=== PATIENT | male | born 1980 | race Hispanic/Latino ===

== ENCOUNTER 2016-10-16 10:53 | Emergency (ER) | payer OTHER ==
[~2016-10-16] VITALS: Ht 167.6 cm; Wt 117.5 kg
[2016-10-16] MEDS ORDERED: IBUP-1114 PO (11:06)
[2016-10-16] MEDS ORDERED: KETOROLAC 30 MG/ML VIAL (J1885) IV ONE (11:15)
--- NOTE | 2016-10-16 11:26 | REP ---
Portable chest: Single view. History: Chest pain. Comparison study: No comparison study. Findings: The lungs are well inflated and clear. Pleural angles are sharp. Cardiomediastinal silhouette is unremarkable. Pulmonary vasculature is not increased. No bony abnormality is seen. Impression: No active disease. Signed by Ryan Sheppard MD 10/16/2016 11:17 A
[2016-10-16 11:28] LABS: BASO % 0.3 % (0.0-1.0); EOS # 0.1 K/mm3 (0.0-0.50); EOS % 1.4 % (0.0-3.0); LARGE UNSTAINED CELL # 0.1 K/mm3 (0.0-0.4); LARGE UNSTAINED CELL % 1.4 % (0.0-4.0); LYMPH # 2.4 K/mm3 (1.5-4.5); MEAN CORPUSCULAR HEMOGLOBIN 30.9 pg (27.0-33.0); MEAN CORPUSCULAR HGB CONC 33.5 g/dl (32.0-36.5); MEAN CORPUSCULAR VOLUME 92.2 fl (80.0-96.0); MONO # 0.5 K/mm3 (0.0-0.8); MONO % 5.7 % (0.0-5.0); NEUTROPHILS # 6.3 K/mm3 (1.8-7.7); NEUTROPHILS % 66.2 % (36.0-66.0); PLATELET COUNT, AUTOMATED 256 k/mm3 (150-450); RED CELL DISTRIBUTION WIDTH 12.3 % (11.5-14.5); WHITE BLOOD COUNT 9.5 K/mm3 (4.0-10.0)
[2016-10-16 11:43] LABS: ANION GAP 7 MEQ/L (8-16); BLOOD UREA NITROGEN 14 MG/DL (7-18); CALCIUM LEVEL 8.6 MG/DL (8.5-10.1); CARBON DIOXIDE LEVEL 27 MEQ/L (21-32); CHLORIDE LEVEL 106 MEQ/L (98-107); CREATININE FOR GFR 0.85 MG/DL (0.70-1.30); GLOMERULAR FILTRATION RATE > 60.0 (>60); GLUCOSE, FASTING 86 MG/DL (70-105); POTASSIUM SERUM 4.1 MEQ/L (3.5-5.1); SODIUM LEVEL 140 MEQ/L (136-145)
[2016-10-16] MEDS ORDERED: NAPR500T PO (13:27)
[2016-10-16] MEDS ORDERED: ISOVUE-370 76% 100ML VIAL (Q9967) As Ordered ONE (14:03)
--- NOTE | 2016-10-16 14:30 | REP ---
CT pulmonary angiogram: With IV contrast. History: Chest pain. Pleuritic. Question pulmonary embolism. Comparison studies: Comparison is made with today's chest x-ray. Contrast dose: 75 cc's of Isovue [address] technique: Helical scanning is acquired and overlapping 1.5 mm and contiguous 3 mm axial images are reformatted. In addition, a 3-D work station is deployed to generate thick slab maximum intensity projection images in sagittal and coronal imaging projections. CT pulmonary angiographic findings: There is good opacification of the pulmonary arterial tree and there is no CT evidence of pulmonary embolism. Maximum intensity projection images show no evidence of vessel cutoff or filling defect to suggest a thrombus. The thoracic aorta enhances homogeneously and is normal in caliber and course. There is no evidence of dissection. No adrenal lesion is seen. The visualized upper abdominal structures are unremarkable. No pleural or pericardial effusion is seen. No hilar or mediastinal mass or adenopathy is observed. No bony destructive lesion is appreciated on bone window settings. There is evidence of an old healed fracture involving the left lateral 9th rib end. This does not appear to be acute. No other evidence of rib fracture is seen. Impression: No active disease. No CT evidence of pulmonary embolism. Signed by Ryan Sheppard MD 10/16/2016 02:21 P
[2016-10-16 14:46] VITALS: BP 137/66
--- NOTE | 2016-10-17 20:01 | ECGEPIP ---
Stationary ECG Study [facility] - ED Test Date: 2016-10-16 Pat Name: NADINE SINGLETARY Department: Room: - Gender: M [employer] Sweeper: ELIAN : 1980 Requested By: Keely Bey Order Number: [id number] Reading MD: Magan Aguirre Measurements Intervals [place] Rate: 57 P: 18 WI: 153 QRS: 55 QRSD: 114 T: -8 QT: 383 QTc: 375 Interpretive Statements SINUS BRADYCARDIA MODERATE INTRAVENTRICULAR CONDUCTION DELAY ABNORMAL QRS-T ANGLE baseline artifact may affect reading no prior Electronically Signed On 10-17-2016 20:01:18 EDT by Magan Aguirre
== END 2016-10-16 15:10 | disposition home or self-care (01) ==
LOC: M ED 12:18
DX: R07.81 Pleurodynia (principal)
CPT/HCPCS: 36415; 71010; 71275; 80048; 82550; 82553; 85025; 85379; 93005; 93041; 94760; 99284; J1885; Q9967